=== PATIENT | male | born 1970 | race Caucasian/White ===

== ENCOUNTER 2017-12-03 04:40 | Outpatient (CLI) | payer BC | END 2017-12-03 23:59 | disposition home or self-care (01) | LOC: DIABETIC 04:40 | PROVIDERS: ATTEND Specialist | DX: E11.65 Type 2 diabetes mellitus with hyperglycemia (principal) | CPT/HCPCS: G0108 ==

== ENCOUNTER 2018-07-29 04:38 | Outpatient (CLI) | payer BC | END 2018-07-29 23:59 | disposition home or self-care (01) | LOC: DIABETIC 04:38 | PROVIDERS: ATTEND Specialist | DX: E11.65 Type 2 diabetes mellitus with hyperglycemia (principal); Z79.4 Long term (current) use of insulin | CPT/HCPCS: G0108 ==